=== PATIENT | female | born 1960 | race Caucasian/White ===

== ENCOUNTER 2024-11-01 10:38 | Emergency (ER) | payer OTHER ==
--- OUTSIDE RECORDS SUMMARY | 2024-11-01 10:41 | XMS REPORT | Continuity of Care Document ---
Author Name Unknown Address [address] [facility] [address] [place] [address] [facility] Address [address] [facility]. [address] [place] [address] Care Team Providers Care Wax Pourer Name Role Phone Herson Saldana Primary Care Physician [phone] STEVEN SPANGLER Attending Clinician Unavailable Doctor Unassigned, [place] Attending Clinician U Steven Coleman MD Attending Clinician [phone] Lab, Ang - Sandor Attending Clinician Unavailable Steven Spangler MD Attending Clinician [phone] GC_GCBZW_Kadiyala_S Attending Clinician UnavailLucia Swift PA-C Attending Clinician [phone] LUCIA DAWN Attending Clinician Unavailable Unknown, Attending Attending Clinician Unavailab le Doctor Unassigned, [place] Attending Clinician U Apurva Moreira MD Attending Clinician [phone] APURVA HERNANDEZ Attending Clinician Unavailable SABAS CHILDRESS Attending Clinician Unavailable Angel Real MD Attending Clinician [phone] ANGEL REAL Attending Clinician Unavailable Lab, Ang - Db Attending Clinician Unavailable Raju_P Attending Clinician Unavailable STEVEN SPANGLER Admitting Clinician Unavailable GC_GCBZW_Kadiyala_S Admitting Clinician Unavaila silvana Hernandez_P Admitting Clinician Unavailable Payers Payer Name Policy Type Policy Number Effective Date Expirati on Date Source [facility] [id number] 2017 00:00:00 9999-08-30 00:00:00 [place]IC[place]: [employer] [id number] 2006 00:00:00 Problems Condition Name Condition Details Condition Category Status Onset Date Resolution Date Last Treatment Date Treating Clinician Comments Source Impaired fasting glucose Impaired fasting glucose Disease Active 02-16 00:00: 00 [facility] Primary hypothyroi dism Primary hypothyroi dism Disease Active 05-13 00:00: 00 [facility] Multiple thyroid nodules Multiple thyroid nodules Disease Active 02-14 00:00: 00 [facility] H/O diabetes mellitus H/O diabetes mellitus Disease Active 02-10 00:00: 00 [facility] Hypothyroi dism, unspecifie d hypothyroi dism type Hypothyroi dism, unspecifie d hypothyroi dism type Disease Active 02-10 00:00: 00 [facility] Allergies, Adverse Reactions, Alerts Allergy Name Allergy Type Status Severity Reaction(s) Onset Date Inactive Date Treating Clinician Comments Source IODINE DRUG INGREDI Active Rash 02-10 00:00: 00 [facility] Iodine Propensi ty to adverse reaction s Active Swelling 02-10 00:00: 00 [facility] Social History Social Habit Start Date Stop Date Quantity Comments Source Sexual orientation U [facility] History of Social function 2024-06-21 00:00:00 2024-06-21 00:00:00 [facility] Alcoholic beverage intake 2024-06-21 00:00:00 2024-06-21 00:00:00 0 /d [facility] Alcohol intake 2023-12-15 00:00:00 2023-12-15 00:00:00 0 /d [facility] Exposure to SARS-CoV-2 (event) 2022-11-02 00:00:00 2022-11-12 14:24:00 Not sure [facility] Sex assigned at 1960 00:00:00 1960 00:00:00 [facility] Smoking Status Start Date Stop Date Source Never smoked tobacco [facility] Medications Ordered Medication Name Filled Medication Name Start Date Stop Date Current Medication? Ordering Clinician Indication Dosage Frequency Signature (SIG) Comments Components Source metformin ER 500 mg 24 hr tablet 2023-08 0-25 00:00: 00 Yes [id number] 1000mg Take 2 tablets by mouth daily with breakfast. [facility] empaglifloz in (JARDIANCE) 25 mg Tab tablet 2023-08 0- 00:00: 00 06-24 00:00 :00 No [id number] 9109 25mg Take 1 tablet by mouth in the morning. [facility] JARDIANCE 25 mg Tab tablet 2023-08 0 00:00: 00 06-21 00:00 :00 No [id number] 25mg Take 1 tablet by mouth in the morning. [facility] levothyroxi ne 88 mcg tablet 16 00:00: 00 Yes [id number] 88ug Take 1 tablet by mouth every morning. [facility] metformin ER 500 mg 24 hr tablet 16 00:00: 00 06-21 00:00 :00 No [id number] 500mg Take 1 tablet by mouth daily with breakfast. [facility] LEVOTHYROXI NE 88 mcg tablet 4-05 00:00: 00 12-14 00:00 :00 No [id number] 88ug TAKE ONE TABLET BY MOUTH EVERY MORNING [facility] levothyroxi ne 88 mcg tablet 3-25 00:00: 00 12-03 00:00 :00 No [id number] 88ug Take 1 tablet by mouth every morning. [facility] metformin ER 500 mg 24 hr tablet 2022-08 2-20 00:00: 00 Yes [id number] 500mg Take 1 tablet by mouth daily with breakfast. [facility] famotidine 20 mg tablet 2022-08 0-24 00:00: 00 Yes [id number] 20mg Take 1 tablet by mouth in the morning and 1 tablet in the evening. [facility] hydrOXYzine 25 mg tablet 2022-08 0-24 00:00: 00 Yes [id number] 25mg Take 1 tablet by mouth every 6 (six) hours as needed for Itching. [facility] levothyroxi ne 88 mcg tablet 2022-08 0-10 00:00: 00 Yes [id number] 88ug Take 1 tablet by mouth every morning. [facility] phentermine 15 mg capsule 6-25 00:00: 00 06-09 00:00 :00 No [id number] 15mg Take 1 capsule by mouth every morning. [facility] metformin ER 500 mg 24 hr tablet 6-17 00:00: 00 08-16 00:00 :00 No [id number] TAKE ONE TABLET BY MOUTH DAILY WITH BREAKFAST [facility] levothyroxi ne 88 mcg tablet 4-19 00:00: 00 06-09 00:00 :00 No [id number] 88ug Take 1 tablet by mouth every morning. [facility] metformin ER 500 mg 24 hr tablet 3-16 00:00: 00 02-14 00:00 :00 No [id number] 500mg Take 1 tablet by mouth daily with breakfast. [facility] levothyroxi ne 100 mcg tablet 3-16 00:00: 00 12-17 00:00 :00 No [id number] 100ug Take 1 tablet by mouth every morning. [facility] phentermine 15 mg capsule 1-06 00:00: 00 02-21 00:00 :00 No [id number] 15mg Take 1 capsule by mouth every morning. [facility] levothyroxi ne 100 mcg tablet 2021-08 1-14 00:00: 00 11-12 00:00 :00 No [id number] 100ug Take 1 tablet by mouth every morning. [facility] metformin ER 500 mg 24 hr tablet 2021-08 1-14 00:00: 00 11-12 00:00 :00 No [id number] 500mg Take 1 tablet by mouth daily with breakfast. [facility] phentermine 15 mg capsule 0 8-09 00:00: 00 09-05 00:00 :00 No [id number] 15mg Take 1 capsule by mouth every morning. [facility] phentermine 15 mg capsule 12-09 00:00: 00 04-08 00:00 :00 No [id number] 15mg Take 1 capsule by mouth every morning. [facility] semaglutide (OZEMPIC) 0.25 mg or 0.5 mg(2 mg/1.5 mL) PnIj 12-05 00:00: 00 04-08 00:00 :00 No [id number] .5mg inject 0.5 mg under the skin weekly. [facility] levothyroxi ne 100 mcg tablet 2020-08 00:00: 00 07-14 00:00 :00 No [id number] 100ug Take 1 tablet by mouth every morning. [facility] metformin ER 500 mg 24 hr tablet 2020-08 00:00: 00 07-14 00:00 :00 No [id number] 500mg Take 1 tablet by mouth daily with breakfast. [facility] dexAMETHaso ne 1 mg tablet 2020-08 00:00: 00 04-08 00:00 :00 No [id number] Take one tablet at 11 Pm and come in for blood work the next morning at 8 AM. [facility] Fenofibrate 160 mg tablet 2019-08 13:54: 51 Yes 160mg Take 160 mg by mouth daily. [facility] pantoprazol e sodium (PANTOPRAZO LE ORAL) 2019-08 11:32: 28 Yes 40mg Take 40 mg by mouth daily. [facility] irbesartan 150 mg tablet 2019-08 11:32: 28 Yes 150mg Take 150 mg by mouth at bedtime. [facility] pravastatin 80 mg tablet 2019-08 11:32: 28 Yes 80mg Take 80 mg by mouth at bedtime. [facility] traMADOL 50 mg tablet 01-01 09:57: 46 Yes 50mg Take 50 mg by mouth every 6 (six) hours as needed. [facility] cloniDINE (CATAPRES) 0.3 mg tablet 01-27 00:00: 00 Yes [facility] metoprolol tartrate (LOPRESSOR) 100 mg tablet 01-27 00:00: 00 Yes [facility] Immunizations Ordered Immunization Name Filled Immunization Name Date Status Comments Source Influenza Virus Vaccine Quad .5 mL IM 6+ MO 2020-07-02 00:00:00 Completed [facility] Influenza Virus Vaccine Quad .5 mL IM 6+ MO 2020-07-02 00:00:00 Completed [facility] Influenza Virus Vaccine Quad .5 mL IM 6+ MO 2020-07-02 00:00:00 Completed [facility] Influenza Virus Vaccine Quad .5 mL IM 6+ MO 2020-07-02 00:00:00 Completed [facility] Influenza Virus Vaccine Quad .5 mL IM 6+ MO 2020-07-02 00:00:00 Completed [facility] Influenza Virus Vaccine Quad .5 mL IM 6+ MO 2020-07-02 00:00:00 Completed [facility] Influenza Virus Vaccine Quad .5 mL IM 6+ MO 2020-07-02 00:00:00 Completed [facility] Influenza Virus Vaccine Quad .5 mL IM 6+ MO 2020-07-02 00:00:00 Completed [facility] Influenza Virus Vaccine Quad .5 mL IM 6+ MO 2020-07-02 00:00:00 Completed [facility] Influenza Virus Vaccine Quad .5 mL IM 6+ MO 2020-07-02 00:00:00 Completed [facility] Influenza Virus Vaccine Quad .5 mL IM 6+ MO 2020-07-02 00:00:00 Completed [facility] Influenza Virus Vaccine Quad .5 mL IM 6+ MO 2020-07-02 00:00:00 Completed [facility] Influenza Virus Vaccine Quad .5 mL IM 6+ MO 2020-07-02 00:00:00 Completed [facility] Influenza Virus Vaccine Quad .5 mL IM 6+ MO 2020-07-02 00:00:00 Completed [facility] Influenza Virus Vaccine Quad .5 mL IM 6+ MO 2020-07-02 00:00:00 Completed [facility] Influenza Virus Vaccine Quad .5 mL IM 6+ MO 2020-07-02 00:00:00 Completed [facility] Influenza Virus Vaccine Quad .5 mL IM 6+ MO 2020-07-02 00:00:00 Completed [facility] Influenza Virus Vaccine Quad .5 mL IM 6+ MO 2020-07-02 00:00:00 Completed [facility] Influenza Virus Vaccine Quad .5 mL IM 6+ MO (FLUZONE/FLULAVAL/F LUARIX) 2020-07-02 00:00:00 Completed [facility] Influenza Virus Vaccine Quad .5 mL IM 6+ MO (FLUZONE/FLULAVAL/F LUARIX) Unknown Completed [facility] Influenza Virus Vaccine Quad .5 mL IM 6+ MO (FLUZONE/FLULAVAL/F LUARIX) Unknown Completed [facility] Influenza Virus Vaccine Quad .5 mL IM 6+ MO (FLUZONE/FLULAVAL/F LUARIX) Unknown Completed [facility] Influenza Virus Vaccine Quad .5 mL IM 6+ MO (FLUZONE/FLULAVAL/F LUARIX) Unknown Completed [facility] Influenza Virus Vaccine Quad .5 mL IM 6+ MO (FLUZONE/FLULAVAL/F LUARIX) Unknown Completed [facility] Influenza Virus Vaccine Quad .5 mL IM 6+ MO (FLUZONE/FLULAVAL/F LUARIX) Unknown Completed [facility] Influenza Virus Vaccine Quad .5 mL IM 6+ MO (FLUZONE/FLULAVAL/F LUARIX) Unknown Completed [facility] Influenza Virus Vaccine Quad .5 mL IM 6+ MO (FLUZONE/FLULAVAL/F LUARIX) Unknown Completed [facility] Vital Signs Vital Name Observation Time Observation Value Comments S ource Systolic blood pressure 2024-06-21 15:09:00 111 mm[Hg] [facility] Diastolic blood pressure 2024-06-21 15:09:00 68 mm[Hg] [facility] Heart rate 2024-06-21 15:09:00 61 /min [facility] Body height 2024-06-21 15:09:00 154.9 cm [facility] Body weight 2024-06-21 15:09:00 80.74 kg [facility] BMI 2024-06-21 15:09:00 33.63 kg/m2 [facility] Oxygen saturation in Arterial blood by Pulse oximetry 2024-06-21 15:09:00 98 /min [facility] Systolic blood pressure 2023-12-15 15:49:00 160 mm[Hg] [facility] Diastolic blood pressure 2023-12-15 15:49:00 83 mm[Hg] [facility] Heart rate 2023-12-15 15:49:00 55 /min [facility] Body height 2023-12-15 15:49:00 154.9 cm [facility] Body weight 2023-12-15 15:49:00 80.74 kg [facility] BMI 2023-12-15 15:49:00 33.63 kg/m2 [facility] Oxygen saturation in Arterial blood by Pulse oximetry 2023-12-15 15:49:00 97 /min [facility] Systolic blood pressure 2023-06-23 14:30:00 129 mm[Hg] [facility] Diastolic blood pressure 2023-06-23 14:30:00 67 mm[Hg] [facility] Heart rate 2023-06-23 14:30:00 64 /min [facility] Body temperature 2023-06-23 14:30:00 36.56 Paz [facility] Respiratory rate 2023-06-23 14:30:00 22 /min [facility] Body weight 2023-06-23 14:30:00 76.885 kg [facility] BMI 2023-06-23 14:30:00 33.05 kg/m2 [facility] Oxygen saturation in Arterial blood by Pulse oximetry 2023-06-23 14:30:00 99 /min [facility] Systolic blood pressure 2023-06-09 14:32:00 175 mm[Hg] [facility] Diastolic blood pressure 2023-06-09 14:32:00 83 mm[Hg] [facility] Body height 2023-06-09 14:32:00 152.5 cm [facility] Body weight 2023-06-09 14:32:00 78.472 kg [facility] BMI 2023-06-09 14:32:00 33.73 kg/m2 [facility] Systolic blood pressure 2022-11-12 19:45:00 136 mm[Hg] [facility] Diastolic blood pressure 2022-11-12 19:45:00 77 mm[Hg] [facility] Heart rate 2022-11-12 19:45:00 56 /min [facility] Body weight 2022-11-12 19:45:00 76.839 kg [facility] BMI 2022-11-12 19:45:00 33.03 kg/m2 [facility] Oxygen saturation in Arterial blood by Pulse oximetry 2022-11-12 19:45:00 100 /min [facility] Systolic blood pressure 2022-04-08 16:42:00 128 mm[Hg] [facility] Diastolic blood pressure 2022-04-08 16:42:00 74 mm[Hg] [facility] Heart rate 2022-04-08 16:42:00 61 /min [facility] Body weight 2022-04-08 16:42:00 81.421 kg [facility] BMI 2022-04-08 16:42:00 35.00 kg/m2 [facility] Oxygen saturation in Arterial blood by Pulse oximetry 2022-04-08 16:42:00 97 /min [facility] Procedures Procedure Date / Time Performed Performing Clinicia n Source DOBUTAMINE STRESS ECHO 2024-07-01 17:57:05 Du jo Unassigned, [place] [facility] HEAD NECK 2024-02-18 17:04:42 Steven Spangler [facility] XR FOOT 3+ VW LEFT 2023-06-23 14:47:50 Lucia Dawn [facility] EXTERNAL PROVIDER RECORDS 2023-03-04 05:01:00 Doctor Unassigned, [place] [facility] EXTERNAL PROVIDER RECORDS 2022-12-22 05:01:00 Doctor Unassigned, [place] [facility] ASSIGNMENT OF BENEFITS 2022-11-12 19:24:26 Docto r Unassigned, [place] [facility] Encounters Start Date/Time End Date/Time Encounter Type Admission Type Attending [facility] Care Department Encounter ID Source 2024-07-01 00:00:00 2024-10-15 06:42:36 Orders Only Doctor Unassigned, [place] Doctor Unassigned, [place] [facility] 1.2.840.114 350.1.13.10 4.2.7.2.686 [id number] [facility] 2024-07-01 00:00:00 2024-07-04 09:51:18 Patient Secure Msg Doctor Unassigned, [place] Doctor Unassigned, [place] [facility] 1.2.840.114 350.1.13.10 4.2.7.2.686 [id number] 220 [id number] [facility] 2024-06-23 00:00:00 2024-06-24 08:15:22 Patient Secure Msg Aníbal [facility] MARGARITA?[facility] 1.2.840.114 350.1.13.10 4.2.7.2.686 [id number] [facility] 2024-06-22 00:00:00 2024-06-23 09:25:33 Patient Secure Msg Aníbal [facility] MARGARITA?[facility] 1.2.840.114 350.1.13.10 4.2.7.2.686 [id number] [facility] 2024-06-21 00:00:00 2024-06-22 08:35:09 Patient Secure Msg Aníbal [facility] MARGARITA?[facility] 1.2.840.114 350.1.13.10 4.2.7.2.686 [id number] [facility] 2024-06-21 14:30:00 2024-06-21 14:30:00 Stained Glass Glazier Helper Visit Lab, Ang - Db Steven [facility]ler [facility] 1.2840.114 350.1.13.10 4.2.7.2.686 [id number] [facility] 2024-06-21 00:00:00 2024-06-21 13:35:26 Telephone Aníbal [facility]ARGARITA[facility] 1.2840.114 350.1.13.10 4.2.7.2.686 [id number] [facility] 2024-06-21 10:00:00 2024-06-21 11:14:28 Outpatient R ANÍBAL [facility] [id number] [facility] 2024-06-21 10:00:00 2024-06-21 11:14:28 Office Visit Aníbal [facility] 1.840.114 350.1.13.10 4.2.7.2.686 [id number] 220 [id number] [facility] 2024-03-05 00:00:00 2024-03-07 15:27:35 Patient Secure Msg Aníbal [facility] MARGARITA[facility] 1.840.114 350.1.13.10 4.2.7.2.686 [id number] [facility] 2024-02-18 11:15:00 2024-02-18 23:59:00 Outpatient R ANÍBAL [facility] [id number] [facility] 2024-02-18 11:15:00 2024-02-18 23:59:00 Hospital Encounter Aníbal [facility] 1.2840.114 350.1.13.10 4.2.7.2.686 [id number] [facility] 2024-02-04 11:00:00 2024-02-04 11:00:00 Outpatient R ANÍBAL [facility] [id number] [facility] 2024-01-21 08:30:00 2024-01-21 08:30:00 Outpatient R ANÍBAL [facility] [id number] [facility] 2023-12-31 00:00:00 2023-12-31 00:00:00 Outpatient R ANÍBAL [facility] [id number] [facility] 2023-12-15 11:00:00 2023-12-15 11:46:16 Outpatient R ANÍBAL [facility] [id number] [facility] 2023-12-15 11:00:00 2023-12-15 11:46:16 Office Visit An[facility]bal [facility] 1.2.840.114 350.1.13.10 4.2.7.2.686 [id number] [facility] 2023-12-04 00:00:00 2023-12-04 00:00:[address] [facility] 1.2.840.114 350.1.13.10 4.2.7.2.686 [id number] [facility] 2023-08-16 00:00:00 2023-08-16 00:00:[address] [facility] 1.2.840.114 350.1.13.10 4.2.7.2.686 [id number] [facility] 2023-06-30 00:00:00 2023-06-30 00:00:00 Outpatient GC_GCBZW_Ka diyala_S [facility] [id number] [facility] 2023-06-29 00:00:00 2023-06-29 00:00:00 Outpatient GC_GCBZW_Ka diyala_S [facility] [id number] [facility] 2023-06-23 09:37:50 2023-06-23 23:59:00 Hospital Encounter Lucia Dawn [facility] 1..840.114 350.1.13.10 4.2.7.2.686 [id number] [facility] 2023-06-23 09:20:00 2023-06-23 09:46:30 Outpatient R LÓPEZ [facility] [id number] [facility] 2023-06-23 09:20:00 2023-06-23 09:46:30 Urgent Care Lucia Dawn Unknown, Attending [facility] 1.840.114 350.1.13.10 4.2.7.2.686 [id number] [facility] 2023-06-09 10:00:00 2023-06-09 10:22:31 Outpatient R ANÍBAL [facility] [id number] [facility] 2023-06-09 10:00:00 2023-06-09 10:22:31 Office Visit Aníbal [facility] 1..840.114 350.1.13.10 4.2.7.2.686 [id number] [facility] 2023-05-12 16:00:00 2023-05-12 16:00:00 Outpatient R ANÍBAL [facility] [id number] [facility] 2023-03-04 00:00:00 2023-03-04 00:00:00 Orders Only Doctor Unassigned, [place] [facility] 1.840.114 350.1.13.10 4.2.7.2.686 [id number] [facility] 2023-02-21 00:00:00 2023-02-21 00:00:00 [facility] 1.2840.114 350.1.13.10 4.2.7.2.686 [id number] [facility] 2023-02-18 00:00:00 2023-02-18 00:00:00 [facility] 1.2840.114 350.1.13.10 4.2.7.2.686 [id number] [facility] 2023-02-14 00:00:00 2023-02-14 00:00:00 [facility]ill Apurva [facility] 1.2840.114 350.1.13.10 4.2.7.2.686 [id number] [facility] 2023-02-14 00:00:00 2023-02-14 00:00:00 Refill Jessica [facility] MARGARITA?[facility] 1.2840.114 350.1.13.10 4.2.7.2.686 [id number] [facility] 2023-02-13 00:00:00 2023-02-13 00:00:00 [facility]ill [facility] 1.2840.114 350.1.13.10 4.2.7.2.686 [id number] [facility] 2023-02-10 00:00:00 2023-02-10 00:00:00 [facility]ill [facility] 1.2840.114 350.1.13.10 4.2.7.2.686 [id number] [facility] 2022-12-22 00:00:00 2022-12-22 00:00:00 Orders Only Doctor Unassigned, [place] [facility] 1.2840.114 350.1.13.10 4.2.7.2.686 [id number] [facility] 2022-12-22 00:00:00 2022-12-22 00:00:[address] [facility] 1.2840.114 350.1.13.10 4.2.7.2.686 [id number] [facility] 2022-12-22 00:00:00 2022-12-22 00:00:00 Patient Secure Msg Doctor Unassigned, [place] [facility] 1.284.114 350.1.13.10 4.2.7.2.686 [id number] [facility] 2022-12-09 00:00:00 2022-12-09 00:00:00 Telephone Spangler, [facility] MARGARITA?[facility] 1.284.114 350.1.13.10 4.2.7.2.686 [id number] [facility] 2022-11-12 14:30:00 2022-11-12 15:26:43 Outpatient R APURVA HERNANDEZ YU [facility] [id number] [facility] 2022-11-12 14:30:00 2022-11-12 15:26:43 Office Visit Jessica Mixon [facility] 1.284.114 350.1.13.10 4.2.7.2.686 [id number] [facility] 2022-11-12 00:00:00 2022-11-12 00:00:00 Orders Only Doctor Unassigned, [place] [facility] 1.20.114 350.1.13.10 4.2.7.2.686 [id number] [facility] 2022-11-12 00:00:00 2022-11-12 00:00:00 [facility] 1..840.114 350.1.13.10 4.2.7.2.686 [id number] 220 [id number] [facility] 2022-11-12 00:00:00 2022-11-12 00:00:00 Refill Aníbal [facility] MARGARITA?[facility] 1.84.114 350.1.13.10 4.2.7.2.686 [id number] 220 [id number] [facility] 2022-09-05 00:00:00 2022-09-05 00:00:00 [facility] 1.84.114 350.1.13.10 4.2.7.2.686 [id number] [facility] 2022-08-22 09:30:00 2022-08-22 09:30:00 Outpatient SABAS TOWNSEND [facility] [id number] [facility] 2022-07-14 00:00:00 2022-07-14 00:00:00 Telephone Aníbal [facility] MARGARITA?[facility] 1.840.114 350.1.13.10 4.2.7.2.686 [id number] 220 [id number] [facility] 2022-04-08 11:00:00 2022-04-08 12:07:43 [facility] 1..840.114 350.1.13.10 4.2.7.2.686 [id number] [facility] 2022-04-08 11:00:00 2022-04-08 12:07:43 Outpatient R STEVEN SPANGLER [facility] [id number] [facility] 2022-04-08 11:00:00 2022-04-08 11:00:00 Outpatient R STEVEN SPANGLER [facility] [id number] [facility] 2021-12-18 00:00:00 2021-12-18 00:00:00 Orders Only Doctor Unassigned, [place] [facility] 1.840.114 350.1.13.10 4.2.7.2.686 [id number] [facility] 2021-12-06 00:00:00 2021-12-06 00:00:00 Telephone Addie [facility] 1..840.114 350.1.13.10 4.2.7.2.686 [id number] 220 [id number] [facility] 2021-12-05 12:00:00 2021-12-05 12:48:25 Outpatient R ADDIE [facility] [id number] [facility] 2021-12-05 12:00:00 2021-12-05 12:30:00 Office Visit Addie [facility] 1..840.114 350.1.13.10 4.2.7.2.686 [id number] 220 [id number] [facility] 2021-12-05 12:00:00 2021-12-05 12:00:00 Outpatient R ADDIE [facility] [id number] [facility] 2021-08-15 00:00:00 2021-08-15 00:00:00 Telephone Addie [facility] 1..840.114 350.1.13.10 4.2.7.2.686 [id number] [facility] 2021-08-05 00:00:00 2021-08-05 00:00:00 Orders Only Doctor Unassigned, [place] [facility] 1.84.114 350.1.13.10 4.2.7.2.686 [id number] [facility] 2021-07-29 08:32:14 2021-07-29 08:47:14 Stained Glass Glazier Helper Visit Lab, Martin Real [facility] 1.840.114 350.1.13.10 4.2.7.2.686 [id number] [facility] 2021-07-29 08:30:00 2021-07-29 08:30:00 Outpatient R ADDIE [facility] [id number] [facility] 2021-07-23 00:00:00 2021-07-23 00:00:00 Telephone Addie [facility] 1.840.114 350.1.13.10 4.2.7.2.686 [id number] 220 [id number] [facility] 2021-07-22 11:47:09 2021-07-22 12:17:09 [facility] 1.84.114 350.1.13.10 4.2.7.2.686 [id number] 220 [id number] [facility] 2021-07-22 12:00:00 2021-07-22 12:00:00 Outpatient R ADDIE [facility] [id number] [facility] 2021-05-28 00:00:00 2021-05-28 00:00:00 [facility] 1.840.114 350.1.13.10 4.2.7.2.686 [id number] [facility] 2020-07-16 11:30:00 2020-07-16 11:30:00 [facility] [id number] 2020-06-15 00:00:00 2020-06-15 00:00:00 Patient Secure Msg Real [facility] 1.2.840.114 350.1.13.10 4.2.7.2.686 [id number] [facility] 2020-06-13 00:00:00 2020-06-13 00:00:00 Outpatient Maribeth REAL [facility] [id number] [facility] 2020-01-02 09:30:00 2020-01-02 09:30:00 Outpatient Maribeth REAL [facility] [id number] [facility] 2016-07-22 03:16:00 2016-07-22 03:16:00 Outpatient Raju_P [place] [id number] [facility] Results Test Description Test Time Test Comments Results Resul t Comments Source DOBUTAMINE STRESS ECHO 1 17:57:05 Ordered by an unspecified provider. [facility] US HEAD NECK 2024-01-31 0 17:13:52 HISTORY: History of thyroid nodules, followup. TECHNIQUE: Thyroid gland is evaluated in multiple planes without and withcolor imaging. FINDINGS: Right lobe of the thyroid gland is 2.8 x 2.0 x 0.8 cm ( 2.5 cc),isthmus portion is 1.9 mm in thickness, left lobe is 2.6 x 0.6 x 0.8 cm (2.61 cc) in size. Entire thyroid gland showing heterogeneous echotexture. 7 x 6 mm hypoechoic, irregular-shaped nodule in lower right lobe noted withcalcifications , shows minimally increased in size since the previous study. Hypoechoic 7 x 5 mm nodule noted at the lower pole of the left lobe,essentially unchanged since the previous study. [facility] Notes Date/Time Note Provider Source 2024-07-04 09:44:45 Talked with patient, message about stress test results was received in error. Pt to disregard. ED STRAND OPERATOR Isabel Musa RN [facility] 2024-06-24 13:20:23 Addended by: STEVEN SPANGLER MD on: 06/24/2024 01:20 PM Modules accepted: Orders T [facility] 2024-06-24 08:14:53 I have routed your concerns to the provider. Isabel Musa RN [facility] 2024-06-23 09:24:38 Routed to provider for assistance. Isabel Musa RN [facility] 2024-06-22 09:33:49 [facility] for better funeral assistant. Please update with patient [facility] 2024-06-21 14:30:00 Images from the original note were not included. Venipuncture collection performed by clean technique on the right anticubitus. Total of 1 attempts were made. Slight pressure and a bandage/dressing were applied to the site(s). The patient experienced no complications. The following specimens were processed according to instructions and sent to [facility] per lab order on 06/21/2024 : LT BLUE SST 1SST 1RST RED LAV PPT DK GREEN (LiHep) DK GREEN (SodH) MEJIA DK BLUE (K2) DK BLUE (S) ACD Blood Culture NIPT/NTD Patient has been identified by and name and was provided with cup, antiseptic towelette, and clean catch instructions. 1 urine specimen(s) sent. Unpreserved 1 Urine Culture Aptima tube Other urine [facility] 2024-06-21 13:35:15 Routed to provider for assistance. Isabel Musa RN [facility] 2024-06-21 12:07:57 Dragan Anglin is a 63 year old female patient calling says she is not able to afford the Jardiance 25 mg, requesting alternate with a generic. Please call [phone] [facility] [id number] - [place] [address] [place] [address] [facility] 2024-03-09 15:37:42 On waitlist, will call if sooner appt is available Ruth Lopez [facility] 2024-03-08 08:36:[address] patient on waitlist for sooner appt. Carmela Caba RN [facility] 2024-03-06 16:33:48 Please review and advise. Carmela Caba RN [facility] 2023-12-04 08:45:50 CASA 06/09/23 NOV 12/15/23 Per CASA note: continue levothyroxine 88 mcg daily. Reviewed proper intake instructions. [facility]
--- NOTE | 2024-11-01 11:16 | RAD REPORT ---
EXAMINATION: CT ABDOMEN AND PELVIS WITHOUT CONTRAST CLINICAL INDICATION: left flank pain TECHNIQUE: CT abdomen and pelvis was performed, without IV contrast, as per department protocol. Axia l, sagittal and coronal reconstructions were obtained. One or more of the following dose reduction techniques were used: Automated exposure control, adjustment of the mA and kV according to the patien t size, and iterative reconstruction. Unless otherwise specified, incidental findings do not require dedicated imaging follow-up. COMPARISON: 09/24/2014 FINDINGS: The lack of intravenous contrast limits the sensitivity of this exam for evaluation of solid visceral organs, vascular structures, and retroperitoneum. LOWER CHEST: The visualized lung bases are clear. LIVER:Normal in size and contour. No focal lesion. Cholecystectomy clips. SPLEEN: Normal size. No focal lesion. PANCREAS: No mass, ductal dilation, or leanna-pancreatic fluid. ADRENALS: Normal; no mass. KIDNEYS AND URETERS: 5 mm stone proximal left ureter resulting in moderate left hydronephrosis. URINARY BLADDER: Normal contour. GASTROINTESTINAL TRACT: No evidence of bowel obstruction, significant free fluid, free air or abscess . There is mild diverticulosis coli of the sigmoid colon without diverticulitis. APPENDIX: Appendix not visualized, but no inflammatory changes in region of appendix. LYMPH NODES: No lymphadenopathy. MUSCULOSKELETAL: No acute or suspicious osseous abnormality. ADDITIONAL FINDINGS: Benign cyst measuring 3.5 cm superior left kidney. IMPRESSION: 5 mm proximal left ureter stone resulting in mild left hydronephrosis.
[2024-11-01] MEDS ORDERED: MAGNESIUM SULFATE 1 gm IVPB 1 GM/100 ML BAG IV ONE (12:07)
[2024-11-01] MEDS ORDERED: TAMSULOSIN 0.4 MG SR CAP ONE (12:08)
[2024-11-01 12:16] LABS: Absolute Basophils 0.1 K/uL (0-0.5); Absolute Lymphocytes (CBC) 0.6 K/uL (0.7-4.9); Absolute Monocytes 0.3 K/uL (0.1-1.3); Basophils % 0.6 % (0-1.3); Eosinophils % 0.1 % (0-4.4); Hematocrit 35.3 % (36.0-45.0); Lymphocytes % 5.1 % (15.3-44.8); MCH 28.6 pg (27.0-35.0); MCHC 33.9 g/dL (32.0-36.0); MCV 84.4 fL (80-100); MPV 9.3 fL (7.6-11.3); Monocytes % 2.4 % (3.3-12.3); Neutrophils % 91.8 % (41.7-73.7); Nucleated Red Blood Cells % 0.1 % (0-0); Platelets 178 thou/uL (152-406); RBC Red Blood Cell Count 4.19 M/uL (3.86-4.86)
[2024-11-01 12:32] LABS: Albumin 3.7 g/dL (3.4-5.0); Albumin/Globulin Ratio 1.1 (1.1-1.8); Bilirubin Total 0.7 mg/dL (0.2-1.0); Globulin 3.5 g/dL (2.3-3.5); Protein, Total 7.2 g/dL (6.4-8.2)
[2024-11-01 13:03] LABS: Blood Morphology Comment NOT SEEN (NOT SEEN); Platelet Estimate ADEQ; White Blood Cell Scan OK (OK)
[2024-11-01] MEDS ORDERED: MORPHINE 4 MG/ML SYR ONE (13:26)
--- NOTE | 2024-11-01 15:50 | ER ---
Nurse's Notes [facility] Name: Ophelia Benítez Age: 64 yrs Sex: Female : 1960 Arrival Date: 11/01/2024 Time: 10:38 Bed 17 Private MD: Diagnosis: Calculus of ureter Presentation: 11/01 11:14 Chief complaint: EMS states: L flank pain that began this morning. radiates to abd. ss Coronavirus screen: Client denies travel out of the [place] in the last 14 days. Ebola Screen: Patient denies exposure to infectious person. Patient denies travel to an Ebola-affected area in the 21 days before illness onset. Initial Sepsis Screen: Does the patient meet any 2 criteria? No. Patient's initial sepsis screen is negative. Does the patient have a suspected source of infection? No. Patient's initial sepsis screen is negative. Risk Assessment: Do you want to hurt yourself or someone else? Patient reports no desire to harm self or others. Onset of symptoms was November 01, 2024. 11:14 Method Of Arrival: Ambulatory ss 11:14 Acuity: DOMINGO 3 11:18 Care prior to arrival: Medication(s) given: toradol 30 mg IVP IV initiated. 20 GA, in ss the right antecubital area. Historical: - Allergies: 11:16 Iodine; ss - PMHx: 11:16 Diabetes mellitus; hashimotos; Hypertensive disorder; ss - PSHx: 11:16 Cholecystectomy; ss - Immunization history:: Adult Immunizations up to date. - Infectious Disease History:: Denies. - Family history:: not pertinent. - Social history:: Smoking status: Patient denies any tobacco usage or history of. - Hospitalizations: : No recent hospitalization is reported. Screenin:16 [facility] ED Fall Risk Assessment (Adult) History of falling in the last 3 months, ap3 including since admission No falls in past 3 months (0 pts) Confusion or Disorientation No (0 pts) Intoxicated or Sedated No (0 pts) Impaired Gait No (0 pts) Mobility Assist Device Used No (0 pt) Altered Elimination No (0 pt) Score/Fall Risk Level 0 - 2 = Low Risk Oriented to surroundings, Maintained a safe environment, Educated pt \T\ family on fall prevention, incl call for assistance when getting out of bed, Assessed \T\ reinforced patient's understanding of fall precautions, Hourly rounding (assess needs \T\ fall precautionary measures) done, Used ambulatory aids as needed (educated on \T\ assisted with). Abuse screen: Denies threats or abuse. Nutritional screening: No deficits noted. Tuberculosis screening: No symptoms or risk factors identified. Assessment: 11:18 Reassessment: Pt reports significant relief from Toradol administration. ss 12:15 General: Appears in no apparent distress. Behavior is calm, cooperative, appropriate ap3 for age. Pain: Complains of pain in left mid back. Neuro: Level of Consciousness is awake, alert, obeys commands, Oriented to person, place, time, situation. Cardiovascular: Patient's skin is warm and dry. Respiratory: Airway is patent Respiratory effort is even, unlabored, Respiratory pattern is regular, symmetrical. GI: Abdomen is non-distended, Bowel sounds present X 4 quads. Abd is soft. Vital Signs: 11:14 BP 115 / 64; Pulse 81; Resp 15; Temp 98.9(O); Pulse Ox 99% ; Weight 80.74 kg; Height 5 ss ft. 0 in. ; Pain 3/10; 13:19 BP 127 / 66; Pulse 72; Resp 16; Pulse Ox 99% ; ap3 16:09 BP 135 / 61; Pulse 78; Resp 17; Pulse Ox 99% on R/A; ap3 11:14 Body Mass Index 34.76 (80.74 kg, 152.4 cm) ss 11:14 Pain Scale: Adult ss ED Course: 10:39 Patient arrived in ED. mr 10:39 Filiberto Magaña MD is Attending Physician. rn 10:53 CT Stone Protocol In Process Unspecified. EDMS 11:16 Triage completed. ss 11:16 Arm band placed on right wrist. ss 12:16 Patient has correct armband on for positive identification. Bed in low position. Call ap3 light in reach. Side rails up X 1. Adult w/ patient. 16:09 No provider procedures requiring assistance completed. IV discontinued, intact, ap3 bleeding controlled, No redness/swelling at site. Pressure dressing applied. 16:20 Provided Education on: discharge instructions . ap3 Administered Medications: 12:14 Drug: Magnesium Sulfate IVPB 1 grams IVPB once over 1 hrs Route: IVPB; Infused Over: 1 ap3 hrs; Site: right antecubital; 13:40 Follow up: IV Status: Completed infusion ap3 12:14 Drug: Flomax PO 0.4 mg PO once Route: PO; ap3 13:40 Follow up: Response: No adverse reaction ap3 13:40 Drug: morphine IVP or IV 4 mg IVP once over 4 mins Route: IVP; Infused Over: 4 mins; ap3 Site: right antecubital; 16:20 Follow up: Response: No adverse reaction; Pain is decreased ap3 Medication: 16:09 VIS not applicable for this client. ap3 Outcome: 15:50 Discharge ordered by . rn 16:09 Condition: good ap3 16:19 Discharged to home ambulatory, with family, ap3 16:19 Discharge instructions given to patient, family, Instructed on discharge instructions, follow up and referral plans. medication usage, Prescriptions given X 4, 16:20 Patient left the ED. ap3 Signatures: Dispatcher [employer] EDAR Evelyn Santiago, Reg Filiberto Masters MD MD rn Blanchard, Shelby, RN RN ss Prokisch, Amanda, RN RN ap3
--- NOTE | 2024-11-01 15:50 | EDPHYS ---
Physician Documentation [facility] Name: Ophelia Benítez Age: 64 yrs Sex: Female : 1960 Arrival Date: 11/01/2024 Time: 10:38 Bed 17 Private MD: ED Physician Filiberto Magaña HPI: 11/01 10:42 This 64 yrs old Female presents to ER via Unassigned with complaints of Possible Kidney rn Stone. 10:42 The patient complains of pain in the left mid back. Onset: The symptoms/episode rn began/occurred this morning. Modifying factors: The symptoms are alleviated by Toradol, the symptoms are aggravated by nothing. Associated signs and symptoms: Pertinent negatives: fever, hematuria. Severity of pain: At its worst the pain was moderate in the emergency department the pain has improved. The patient has experienced a previous episode. Patient reports left flank pain that began this morning at 3 AM. EMS arrived and patient was very uncomfortable, given Toradol with resolution of pain. No fever or chills. No hematuria. Has had kidney stone once. Patient denies pain at this time.. Historical: - Allergies: 11:16 Iodine; ss - PMHx: 11:16 Diabetes mellitus; hashimotos; Hypertensive disorder; ss - PSHx: 11:16 Cholecystectomy; ss - Immunization history:: Adult Immunizations up to date. - Infectious Disease History:: Denies. - Family history:: not pertinent. - Social history:: Smoking status: Patient denies any tobacco usage or history of. - Hospitalizations: : No recent hospitalization is reported. ROS: 10:42 Constitutional: Negative for fever, chills, and weight loss, Cardiovascular: Negative rn for chest pain, palpitations, and edema, Respiratory: Negative for shortness of breath, cough, wheezing, and pleuritic chest pain, Abdomen/GI: Negative for abdominal pain, nausea, vomiting, diarrhea, and constipation, Back: Positive for left flank pain : Negative for injury, bleeding, discharge, and swelling, MS/Extremity: Negative for injury and deformity, Skin: Negative for injury, rash, and discoloration, Neuro: Negative for headache, weakness, numbness, tingling, and seizure, Exam: 10:42 Constitutional: This is a well developed, well nourished patient who is awake, alert, rn and in no acute distress. Cardiovascular: Regular rate and rhythm. No pulse deficits. Abdomen/GI: Soft, non-tender Back: No CVA tenderness Vital Signs: 11:14 BP 115 / 64; Pulse 81; Resp 15; Temp 98.9(O); Pulse Ox 99% ; Weight 80.74 kg; Height 5 ss ft. 0 in. ; Pain 3/10; 13:19 BP 127 / 66; Pulse 72; Resp 16; Pulse Ox 99% ; ap3 16:09 BP 135 / 61; Pulse 78; Resp 17; Pulse Ox 99% on R/A; ap3 11:14 Body Mass Index 34.76 (80.74 kg, 152.4 cm) ss 11:14 Pain Scale: Adult ss MDM: 10:39 Medical Screening Exam initiated rn 15:49 Differential diagnosis: nephrolithiasis. Data reviewed: vital signs, nurses notes. Data rn reviewed: lab test result(s), radiologic studies, CT scan, and as a result, I will discharge patient. Counseling: I had a detailed discussion with the patient and/or guardian regarding the historical points, exam findings, and any diagnostic results supporting the discharge/admit diagnosis, lab results, radiology results, the need for outpatient follow up, to return to the emergency department if symptoms worsen or persist or if there are any questions or concerns that arise at home. Response to treatment: the patient's symptoms have markedly improved after treatment, and as a result, I will discharge patient. Special discussion: I discussed with the patient/guardian in detail that at this point there is no indication for admission to the hospital. It is understood, however, that if the symptoms persist or worsen the patient needs to return immediately for re-evaluation. 11/01 10:40 Order name: CBC with Diff; Complete Time: 13:15 rn 11/01 10:40 Order name: CMP; Complete Time: 13:15 rn 11/01 12:22 Order name: CBC Smear Scan; Complete Time: 13:15 EDMS 11/01 14:22 Order name: Glucose, Ancillary Testing EDWV 11/01 10:40 Order name: CT Stone Protocol; Complete Time: 11:55 rn 11/01 10:40 Order name: IV Saline Lock; Complete Time: 12:05 rn 11/01 10:40 Order name: Labs collected and sent; Complete Time: 12:05 rn Administered Medications: 12:14 Drug: Magnesium Sulfate IVPB 1 grams IVPB once over 1 hrs Route: IVPB; Infused Over: 1 ap3 hrs; Site: right antecubital; 13:40 Follow up: IV Status: Completed infusion ap3 12:14 Drug: Flomax PO 0.4 mg PO once Route: PO; ap3 13:40 Follow up: Response: No adverse reaction ap3 13:40 Drug: morphine IVP or IV 4 mg IVP once over 4 mins Route: IVP; Infused Over: 4 mins; ap3 Site: right antecubital; 16:20 Follow up: Response: No adverse reaction; Pain is decreased ap3 Disposition Summary: 11/01/24 15:50 Discharge Ordered Notes: Location: Home rn Problem: new rn Symptoms: have improved rn Condition: Stable rn Diagnosis - Calculus of ureter rn Followup: rn - With: Private Physician - When: As needed - Reason: Recheck today's complaints, Re-evaluation by your physician Discharge Instructions: - Discharge Summary Sheet rn - Kidney Stones rn - Renal Colic rn - Dietary Guidelines to Help Prevent Kidney Stones rn Forms: - Medication Reconciliation Form rn - Antibiotic recruiting internship - Prescription Opioid Use rn - Patient Portal Instructions rn - Leadership Thank You Letter rn Prescriptions: - Flomax 0.4 mg Oral capsule - take 1 capsule ORAL route every 24 hours As needed Stop taking once you have rn passed your stone; 10 capsule; Refills: 0, Product Selection Permitted - ondansetron 4 mg Oral Tablet,disintegrating - take 1 tablet ORAL route every 8 hours As needed; 10 tablet; Refills: 0, rn Product Selection Permitted - Cipro 500 mg Oral Tablet - take 1 tablet ORAL route every 12 hours for 7 days; 14 tablet; Refills: 0, rn Product Selection Permitted - Tramadol 50 mg Oral Tablet - take 1 tablet ORAL route every 8 hours as needed; 12 tablet; Refills: 0, rn Product Selection Permitted Signatures: Dispatcher [employer] Filiberto Hagan MD MD rn Blanchard, Shelby, RN RN ss Prokisch, Amanda, RN RN ap3
[2024-11-01 16:24] VITALS: TEMP 98.9; O2SAT 99
[2024-11-01 16:27] VITALS: BP 135/61
== END 2024-11-01 16:20 | disposition home or self-care (01) ==
LOC: ER 10:38
DX: N20.1 Calculus of ureter (principal)
CPT/HCPCS: 85025; 36415; 82947; 80053; 76377; 74176; J3475; 96365; 96375; 99284